=== PATIENT | male | born 1955 | race Caucasian/White ===

== ENCOUNTER 2017-03-04 04:02 | Day surgery (SDC) | payer OTHER ==
[2017-03-01 15:49] LABS: HEMATOCRIT 39.6 % (40.0-51.0)
--- NOTE | ~2017-03-04 | OP ---
Record Of Operation [facility] [address] [place]. [address] NAME: ROSEANNE VAZQUEZ : 59 STATUS : [place] [facility] [place] PAT#: [id number] AGE: 61 ADM/REG DATE : 03/04/17 MR#: [id number] REPORT SERV DATE: 03/04/17 DICTATED BY: CUBA FUENTES DATE: 03/04/17 REPORT STATUS : Draft TRANSCRIBED BY: MODL DATE: 03/04/17 DATE OF PROCEDURE: PREOPERATIVE DIAGNOSIS: Cervical spondylosis, spinal stenosis, left-sided C7 radiculopathy. POSTOPERATIVE DIAGNOSIS: Cervical spondylosis, spinal stenosis, left-sided C7 radiculopathy. PROCEDURE: 1. Microscopic navigation-assisted surgery. 2. Anterior cervical diskectomy, foraminotomy, C6-7. 3. Anterior interbody fusion with cortical cancellous allograft. 4. Anterior instrumentation with Venture plating, C6-7. SURGEON: Cuba Fuentes D.O. [employer]IST: Justino Walker. ANESTHESIA: General. ESTIMATED BLOOD LOSS: 25 mL. INDICATIONS FOR SURGERY: A 61-year-old male, with neck, shoulder, and left arm pain. It has been going on for several months. It has been through time, medication, therapy, etc. Plain x-rays reveal normal cervical spine except at C6-7, where the disk spaces collapse, there is significant spondylosis, and foraminal narrowing, and the MRI confirms left-sided foraminal stenosis. The patient brought to surgery for the above procedure having failed conservative care. Prior to surgery, risks, benefits, alternatives, and expectations were explained. Consent form is signed. Please note, because of the complexity of surgery and the need to identify correct level of surgery intraoperatively, as well as the desire to carry out the safest and most precise dissection, we feel that intraoperative navigation is mandatory. DESCRIPTION OF PROCEDURE: The patient was identified in preop holding area. Antibiotic prophylaxis was given. Neurophysiology monitoring leads were inserted. The patient was brought to the operative suite. General anesthetic including endotracheal intubation was administered. He was in a supine position on fluoroscopic [place] spine frame. Small bolster was placed behind the shoulders. The neck was in neutral alignment. The scalp was painted with Betadine solution. [place] three-point fixation was attached to the skull using 60 pounds torque in standard position. [place] was attached to the [place] bed. The [employer] navigational registration frame was attached to the [place]. Isolation drapes were placed. The neck was scrubbed with Hibiclens solution. DuraPrep was painted. Sterile drapes were applied. Intraoperative CT scan with O-arm obtained, CT information used to register the navigational system. Record Of Operation [facility] [address] [place]. [address] NAME: ROSEANNE VAZQUEZ : 59 [place]US : [place] [facility] [place] PAT#: [id number] AGE: 61 ADM/REG DATE : 03/04/17 MR#: [id number] REPORT SERV DATE: 03/04/17 DICTATED BY: CUBA FUENTES DATE: 03/04/17 REPORT STATUS : Draft TRANSCRIBED BY: ZORA DATE: 03/04/17 With navigational assistance, I identified C6-7 on the left side, and on the left side, a 2.5 cm skin incision was carried out parallel with the C6-7 disk space. Platysma was incised in line with the skin incision. The superficial layer of the deep cervical fascia was released along the anterior border of the sternocleidomastoid. Blunt dissection was carried out to the retropharyngeal space with the longus coli muscles were subperiosteally elevated. Retractors were placed. The microscope was sterilely draped and used throughout the remainder of the procedure. The navigational system was used to identify the midbody of C6 and C7. [place] distractor pins were placed. Debridement of the anterior osteophytes was carried out. Anterior diskectomy was completed with curettes and rongeurs. As we moved from [id number], the uncinate processes were widely debrided with a 3 mm and 2 mm seth mckay, as well as 1 mm Kerrison rongeur. After the decompression the wound was irrigated. The width, depth, and height of the disk space was measured. A cortical cancellous wedge-shaped allograft was inserted into the interbody space. Traction was released locking the graft in good position. The 23 mm Venture plate was placed over the midportion of interbody space. The four holes were drilled. The locking screws were inserted providing rigid stability. Intraoperative x rays was taken showing excellent position of all implants at C6-7. The wound was irrigated. No bleeding was noted. No drain was necessary. Standard wound closure was carried out. Sterile dressings were applied. The patient was awakened, extubated, and taken to recovery room in satisfactory condition having tolerated procedure well. Sponge, needle, and instrument counts were correct. No intraoperative complications noted. BLANCHE/ZORA Cuba Fuentes D.O. / [id number] CC: Sarika Henry M.D.
[~2017-03-04 04:02] MED LIST: METHOC750B PO; NIZORALCRM TOP; VOLT75 PO; [UNRECOGNIZED DRUG - REMARK]
== END 2017-03-04 13:07 | disposition home or self-care (01) ==
LOC: SDC 04:02
PROVIDERS: Orthopaedic Surgery Orthopaedic Surgery of the Spine
PROC: 0RG10J0 Fusion of Cervical Vertebral Joint with Synthetic Substitute, Anterior Approach, Anterior Column, Open Approach (ICD-10-PCS; 2017-03-04)
PROC: 0RG10K0 Fusion of Cervical Vertebral Joint with Nonautologous Tissue Substitute, Anterior Approach, Anterior Column, Open Approach (ICD-10-PCS; principal; 2017-03-04 05:45)
PROC: 0RB30ZZ Excision of Cervical Vertebral Disc, Open Approach (ICD-10-PCS; 2017-03-04 05:45)
DX: M48.02 Spinal stenosis, cervical region (principal); M47.22 Other spondylosis with radiculopathy, cervical region; Z79.899 Other long term (current) drug therapy; Z90.49 Acquired absence of other specified parts of digestive tract; Z98.890 Other specified postprocedural states
CPT/HCPCS: 82962; 85014; 85018; 87641; 88304; 93005; A9270-GY; C1713; C1768; J0690; J2250; J2405; J2550; J2710; J3010